=== PATIENT | male | born 1955 | race Caucasian/White ===

== ENCOUNTER 2019-05-24 06:15 | Emergency (ER) | payer OTHER ==
[~2019-05-24] VITALS: Ht 188 cm; Wt 142.9 kg
--- OUTSIDE RECORDS SUMMARY | ~2019-05-24 | XMS | Clinical Summary ---
Demographics + + + | Address | [address] | | | [place] [address] | + + + | Home Phone | | + + + | Preferred Language | Unknown | + + + | Marital Status | Unknown | + + + | Hinduism Affiliation | Unknown | + + + | Race | Unknown | + + + | Ethnic Group | Unknown | + + + Author + + + | Author | [facility] | | | and [place] | + + + | Organization | [facility] | | | and [place] | + + + | Address | Unknown | + + + | Phone | Unavailable | + + + Support + + +---------+ + | Name | Relationship | Address | Phone | + + +---------+ + | ViktoriyaLiz | ECON | Unknown | | + + +---------+ + Care Team Providers + +------+ + | Care Payroll Associate Name | Role | Phone | + +------+ + | Nickolas Bagley MD | PCP | | + +------+ + Allergies No Known Allergies Medications + + + +---------+------+------+-------+ | Medication | Sig | Dispensed | Refills | Star | End | Statu | | | | | | t | Date | s | | | | | | Date | | | + + + +---------+------+------+-------+ | acetaminophen | Take 325 mg by mouth | | 0 | 01/2 | | Activ | | (TYLENOL) 325 mg | every 6 (six) hours | | | 4/20 | | e | | tablet | as needed for Pain. | | | 19 | | | + + + +---------+------+------+-------+ | | Take 1 tablet by | | 0 | 01/2 | | Activ | | oxyCODONE-acetaminop | mouth every 4 (four) | | | 4/20 | | e | | hen (PERCOCET) | hours as needed for | | | 19 | | | | 10-325 mg per tablet | Pain. | | | | | | + + + +---------+------+------+-------+ | ibuprofen (ADVIL, | Take 400 mg by mouth | | 0 | 01/2 | | Activ | | MOTRIN) 400 mg | every 6 (six) hours | | | 4/20 | | e | | tablet | as needed for Pain. | | | 19 | | | + + + +---------+------+------+-------+ | gemfibrozil | Take 600 mg by mouth | | 0 | 01/2 | | Activ | | (LOPID) 600 mg | 2 (two) times daily | | | 4/20 | | e | | tablet | before meals. | | | 19 | | | + + + +---------+------+------+-------+ | metFORMIN | Take 1,000 mg by | | 0 | 01/2 | | Activ | | (GLUCOPHAGE) 1000 MG | mouth 2 (two) times | | | 4/20 | | e | | tablet | daily with meals. | | | 19 | | | + + + +---------+------+------+-------+ | glipiZIDE | Take 10 mg by mouth | | 0 | 01/2 | | Activ | | (GLUCOTROL) 10 MG | 2 (two) times daily | | | 4/20 | | e | | tablet | before meals. | | | 19 | | | + + + +---------+------+------+-------+ | aspirin 325 mg | Take 325 mg by mouth | | 0 | 01/2 | | Activ | | tablet | daily with | | | 4/20 | | e | | | breakfast. | | | 19 | | | + + + +---------+------+------+-------+ | SITagliptin | Take 100 mg by mouth | | 0 | 01/2 | | Activ | | (JANUVIA) 100 mg | daily. | | | 4/20 | | e | | tablet | | | | 19 | | | + + + +---------+------+------+-------+ | cyclobenzaprine | Take 10 mg by mouth | | 0 | 01/2 | | Activ | | (FLEXERIL) 10 mg | 3 (three) times | | | 4/20 | | e | | tablet | daily as needed for | | | 19 | | | | | Muscle spasms. | | | | | | + + + +---------+------+------+-------+ | clopidogrel | Take 1 tablet by | 90 | 3 | 01/2 | | Activ | | (PLAVIX) 75 mg | mouth daily. | tablet | | 4/20 | | e | | tablet | | | | 19 | | | + + + +---------+------+------+-------+ | | Take 1 tablet by | 90 | 3 | 01/2 | | Activ | | hydroCHLOROthiazide | mouth daily. | tablet | | 4/20 | | e | | 25 mg tablet | | | | 19 | | | + + + +---------+------+------+-------+ | irbesartan | Take 1 tablet by | 90 | 3 | 01/2 | | Activ | | (AVAPRO) 300 mg | mouth nightly. | tablet | | 4/20 | | e | | tablet | | | | 19 | | | + + + +---------+------+------+-------+ | metoprolol | Take 1 tablet by | 90 | 3 | 01/2 | | Activ | | succinate | mouth daily. | tablet | | 4/20 | | e | | (TOPROL-XL) 50 mg 24 | | | | 19 | | | | hr tablet | | | | | | | + + + +---------+------+------+-------+ | nitroglycerin | Place 1 tablet under | 90 | 0 | 01/2 | | Activ | | (NITROSTAT) 0.4 mg | the tongue every 5 | tablet | | 4/20 | | e | | SL tablet | (five) minutes as | | | 19 | | | | | needed for Chest | | | | | | | | pain. | | | | | | + + + +---------+------+------+-------+ | rosuvastatin | Take 1 tablet by | 90 | 3 | / | | Activ | | (CRESTOR) 10 mg | mouth nightly. | tablet | | 4/20 | | e | | tablet | | | | 19 | | | + + + +---------+------+------+-------+ | MANUAL SELECTION | Inhale into the | | 0 | /2 | | Activ | | NEEDED - STIOLTO | lungs. | | | 11/16 | | e | | RESPIMAT IN | | | | 19 | | | + + + +---------+------+------+-------+ Active Problems Not on file Social History + +-------+ +--------+------+ | Tobacco Use | Types | Packs/Day | Years | Date | | | | | Used | | + +-------+ +--------+------+ | Former Smoker | | | | | + +-------+ +--------+------+ + + + | Sex Assigned at | Date Recorded | | | | + + + | Not on file | | + + + + + + + | Job Start Date | Occupation | Industry | + + + + | Not on file | Not on file | Not on file | + + + + + + + + | Travel History | Travel Start | Travel End | + + + + + + | No recent travel history available. | + + Last Filed Vital Signs + + + + | Vital Sign | Reading | Time Taken | + + + + | Blood Pressure | 138/70 | 08/22/20186 PST | + + + + | Pulse | 79 | 08/22/20186 PST | + + + + | Temperature | - | - | + + + + | Respiratory Rate | - | - | + + + + | Oxygen Saturation | - | - | + + + + | Inhaled Oxygen | - | - | | Concentration | | | + + + + | Weight | 140.6 kg (310 lb) | 08/22/20181455 PST | + + + + | Height | 188 cm (6' 2") | 08/22/20181455 PST | + + + + | Body Mass Index | 39.8 | 08/22/20181455 PST | + + + + Plan of Treatment + + + + + | Health Maintenance | Due Date | Last Done | Comments | + + + + + | Vaccine: | | | | | Dtap/Tdap/Td (1 - | 5 | | | | Tdap) | | | | + + + + + | Colorectal Cancer | | | | | Screening | 6 | | | | (Colonoscopy) | | | | + + + + + | Vaccine: Zoster (1 | | | | | of 2) | 6 | | | + + + + + | Vaccine: Influenza | | | | | (#1) | 9 | | | + + + + + | Hepatitis C | Completed | 10/11/2010 | | | Screening | | | | + + + + + Results Not on filefrom Last 3 Months
--- OUTSIDE RECORDS SUMMARY | ~2019-05-24 | XMS | Clinical Summary ---
Demographics + + + | Address | [address] | | | [place] [address] | + + + | Home Phone | | + + + | Preferred Language | Unknown | + + + | Marital Status | Unknown | + + + | Spiritism Affiliation | Unknown | + + + | Race | Unknown | + + + | Ethnic Group | Unknown | + + + Author + + + | Author | [facility] | | | and [place] | + + + | Organization | [facility] | | | and [...] Team Providers + +------+ + | Care Payment Poster Name | Role | Phone | + [...]
--- OUTSIDE RECORDS SUMMARY | ~2019-05-24 | XMS | Clinical Summary ---
Demographics + + + | Address | [address] | | | [place] [address] | + + + | Home Phone | | + + + | Preferred Language | Unknown | + + + | Marital Status | Single | + + + | Bahai Affiliation | Unknown | + + + | Race | Unknown | + + + | Ethnic Group | Unknown | + + + Author + + + | Author | [facility] (Historical as of | | | 03-15-19) | + + + | Organization | [facility] (Historical as of | | | 03-15-19) | + + + | Address | Unknown | + + + | Phone | Unavailable | + + + Support + + +---------+ + | Name | Relationship | Address | Phone | + + +---------+ + | ViktoriyaFelixLiz | ECON | Unknown | | + + +---------+ + Care Team Providers + +------+ + | Care Tape Stringer Name | Role | Phone | + +------+ + | Nickolas Bagley MD | PP | | + +------+ + Allergies No Known Allergies Current Medications + + +--------+---------+------+------+-------+ | Prescription | Sig. | Disp. | Refills | Star | End | Statu | | | | | | t | Date | s | | | | | | Date | | | + + +--------+---------+------+------+-------+ | acetaminophen | Take 325 mg by mouth | | | | | Activ | | (TYLENOL) 325 MG | every 6 (six) hours | | | | | e | | tablet | as needed for Pain. | | | | | | + + +--------+---------+------+------+-------+ | | Take 1 tablet by | | | | | Activ | | oxyCODONE-acetaminop | mouth every 4 (four) | | | | | e | | hen (PERCOCET) | hours as needed for | | | | | | | 10-325 MG per tablet | Pain. | | | | | | + + +--------+---------+------+------+-------+ | ibuprofen (MOTRIN) | Take 400 mg by mouth | | | | | Activ | | 400 MG tablet | every 6 (six) hours | | | | | e | | | as needed for Pain. | | | | | | + + +--------+---------+------+------+-------+ | gemfibrozil | Take 600 mg by mouth | | | | | Activ | | (LOPID) 600 MG | 2 (two) times daily | | | | | e | | tablet | before meals. | | | | | | + + +--------+---------+------+------+-------+ | metFORMIN | Take 1,000 mg by | | | | | Activ | | (GLUCOPHAGE) 1000 MG | mouth 2 (two) times | | | | | e | | tablet | daily with meals. | | | | | | + + +--------+---------+------+------+-------+ | glipiZIDE | Take 10 mg by mouth | | | | | Activ | | (GLUCOTROL) 10 MG | 2 (two) times daily | | | | | e | | tablet | before meals. | | | | | | + + +--------+---------+------+------+-------+ | aspirin 325 MG | Take 325 mg by mouth | | | | | Activ | | tablet | daily with | | | | | e | | | breakfast. | | | | | | + + +--------+---------+------+------+-------+ | sitagliptan | Take 100 mg by mouth | | | | | Activ | | (JANUVIA) 100 MG | daily. | | | | | e | | tablet | | | | | | | + + +--------+---------+------+------+-------+ | cyclobenzaprine | Take 10 mg by mouth | | | | | Activ | | (FLEXERIL) 10 MG | 3 (three) times | | | | | e | | tablet | daily as needed for | | | | | | | | Muscle spasms. | | | | | | + + +--------+---------+------+------+-------+ | Tiotropium | Inhale into the | | | | | Activ | | [place]-Olodaterol | lungs. | | | | | e | | (STIOLTO RESPIMAT | | | | | | | | IN) | | | | | | | + + +--------+---------+------+------+-------+ | clopidogrel | Take 1 tablet by | 90 | 3 | 07/31 | | Activ | | (PLAVIX) 75 MG | mouth daily. | tablet | | 11/16 | | e | | tablet | | | | 19 | | | + + +--------+---------+------+------+-------+ | | Take 1 tablet by | 90 | 3 | 01/2 | | Activ | | hydrochlorothiazide | mouth daily. | tablet | | 4/20 | | e | | (HYDRODIURIL) 25 MG | | | | 19 | | | | tablet | | | | | | | + + +--------+---------+------+------+-------+ | irbesartan | Take 1 tablet by | 90 | 3 | 01/2 | | Activ | | (AVAPRO) 300 MG | mouth nightly. | tablet | | 4/20 | | e | | tablet | | | | 19 | | | + + +--------+---------+------+------+-------+ | metoprolol | Take 1 tablet by | 90 | 3 | 01/2 | | Activ | | (TOPROL-XL) 50 MG 24 | mouth daily. | tablet | | 4/20 | | e | | hr tablet | | | | 19 | | | + + +--------+---------+------+------+-------+ | nitroGLYCERIN | Place 1 tablet under | 90 | 0 | 01/2 | | Activ | | (NITROSTAT) 0.4 MG | the tongue every 5 | tablet | | 4/20 | | e | | SL tablet | (five) minutes as | | | 19 | | | | | needed for Chest | | | | | | | | pain. | | | | | | + + +--------+---------+------+------+-------+ | rosuvastatin | Take 1 tablet by | 90 | 3 | 01/2 | | Activ | | (CRESTOR) 10 MG | mouth nightly. | tablet | | 4/20 | | e | | tablet | | | | 19 | | | + + +--------+---------+------+------+-------+ Active Problems Not on file Social History + +-------+ +--------+------+ | Tobacco Use | Types | Packs/Day | Years | Date | | | | | Used | | + +-------+ +--------+------+ | Former Smoker | | | | | + +-------+ +--------+------+ + +---+---+---+ | Smokeless Tobacco: | | | | | Never Used | | | | + +---+---+---+ + + +---------+ + | Alcohol Use | Drinks/We | oz/Week | Comments | | | ek | | | + + +---------+ + | No | | | | + + +---------+ + + + + | Sex Assigned at | Date Recorded | | | | + + + | Not on file | | + + + Last Filed Vital Signs + + + + | Vital Sign | Reading | Time Taken | + + + + | Blood Pressure | 138/70 | 08/22/2018 2:43 PM PST | + + + + | Pulse | 79 | 08/22/2018 2:43 PM PST | + + + + | Temperature | - | - | + + + + | Respiratory Rate | - | - | + + + + | Oxygen Saturation | 96% | 08/22/2018 2:43 PM PST | + + + + | Inhaled Oxygen | - | - | | Concentration | | | + + + + | Weight | 140.6 kg (310 lb) | 08/22/2018 2:43 PM PST | + + + + | Height | 188 cm (6' 2") | 08/22/2018 2:43 PM PST | + + + + | Body Mass Index | 39.8 | 08/22/2018 2:43 PM PST | + + + + Plan of Treatment + + + + + | Health Maintenance | Due Date | Last Done | Comments | + + + + + | Colon Cancer | | | | | Screening [...] + + + | Vaccine: | | 08/19/2018 | | | Dtap/Tdap/Td (2 - | 9 | | | | Td) | | | | + + + + + Results Not on filefrom Last 3 Months Insurance + +--------+ +------+-------+---------+ | Payer | Benefi | Subscriber | Type | Phone | Address | | | t Plan | ID | | | | | | / | | | | | | | Group | | | | | + +--------+ +------+-------+---------+ | [facility] | [place] | [id number] | | | | | | | | | | | | | HEALTH | | | | | | | CARE - | | | | | | | SLC | | | | | + +--------+ +------+-------+---------+ + +--------+ +--------+ + + | Guarantor Name | Accoun | Relation to | Date | Phone | Billing Address | | | t Type | Patient | of | | | | | | | | | | + +--------+ +--------+ + + | ROBER SCHNEIDER | Person | Self [birth year] Home: | [address] | | | al/Fam | | [phone] | [place] | | | pratik | | | [phone] | [phone] | + +--------+ +--------+ + +
--- OUTSIDE RECORDS SUMMARY | ~2019-05-24 | XMS | Clinical Summary ---
Demographics + + + | Address | [address] | | | [place] [address] | + + + | Home Phone | | + + + | Preferred Language | Unknown | + + + | Marital Status | Single | + + + | Scientology Affiliation | Unknown | + + + | Race | Unknown | + + + | Ethnic Group | Unknown | + + + Author + + + | Author | [facility] (Historical as of | | | 03-15-19) | + + + | Organization | [facility] (Historical as of | | | 03-15-19) [...] Team Providers + +------+ + | Care Nitro Man Name | Role | Phone | + [...] | | | | Activ | | [place]-Olodaterol | lungs. | | | | | [...] | | | + +--------+ +------+-------+---------+ | [facility] | [place] | [id number] | | | | | | | [...] | | al/Fam | | [phone] | [place] | | | pratik | | | [phone] | + +--------+ +--------+ + +
[~2019-05-24 06:15] MED LIST: CLOPIDOGREL75 MG PO; GEMFIBROZIL600 MG PO; GLIPIZIDE10 MG PO; HYDROCHLOROTHIA25 MG PO; IRBESARTAN300 MG PO; JANUVIA100 MG PO; MELOXICAM15 MG PO; METFORMIN HCL1000 MG PO; METOPROLOL SUCC50 MG PO; NITROGLYCERIN0.4 MG SL; ROSUVASTATIN CA10 MG PO; VITAMIN D250000 UNIT PO
[2019-05-24] MEDS ORDERED: ANORO ELLIPTA1 EACH INH (06:26)
--- NOTE | 2019-05-24 19:59 | EKG ---
[facility] [address] [place], [place] [address] Signed Normal sinus rhythm Normal ECG When compared with ECG of 17-DEC-2016 11:55, No significant change was found Confirmed by FER MIMS MD ([id number]) on 05/24/2019 7:58:57 PM Electronically Signed By: FER MIMS MD 05/24/191958 PATIENT NAME: ELLE SCHNEIDER Electrocardiogram DATE OF : 57 PHYSICIAN: FER MIMS MD REPORT #: [id number] REPORT IS CONFIDENTIAL AND NOT TO BE RELEASED WITHOUT AUTHORIZATION
== END 2019-05-24 08:35 | disposition home or self-care (01) ==
LOC: ED 06:15
PROC: 0T2BX0Z Change Drainage Device in Bladder, External Approach (ICD-10-PCS; principal; 2019-05-24)
PROC: 4A0D7LZ Measurement of Urinary Volume, Via Natural or Artificial Opening (ICD-10-PCS; 2019-05-24)
DX: R06.02 Shortness of breath (principal); R33.9 Retention of urine, unspecified; I10 Essential (primary) hypertension; E78.5 Hyperlipidemia, unspecified; Z87.891 Personal history of nicotine dependence; Z95.5 Presence of coronary angioplasty implant and graft; Z79.02 Long term (current) use of antithrombotics/antiplatelets; Z79.899 Other long term (current) drug therapy; Z79.84 Long term (current) use of oral hypoglycemic drugs
CPT/HCPCS: 51702; 51798; 71045; 80053; 83735; 83880; 84484; 85025; 93005; 93010; 99285-25

== ENCOUNTER 2020-02-02 05:50 | Day surgery (SDC) | payer OTHER ==
[~2020-02-02] VITALS: Ht 188 cm; Wt 130.2 kg
--- NOTE | ~2020-02-02 | OR ---
[facility] [address], [place] [address] Draft DATE OF OPERATION: 02/02/2020 SURGEON: Laisha Scott MD PREOPERATIVE DIAGNOSES: 1. Urinary retention, secondary to long-standing bladder outlet obstruction. 2. Severe benign prostatic hypertrophy. POSTOPERATIVE DIAGNOSES: 1. Urinary retention, secondary to long-standing bladder outlet obstruction. 2. Severe benign prostatic hypertrophy. PROCEDURE PERFORMED: Transurethral resection of the prostate. ANESTHESIA: LMA with epidural. COMPLICATIONS: None. SPECIMENS: Prostate chips sent to the lab for pathological evaluation. DRAINS: A 22-[place] 3-way Bergman catheter, connected to continuous bladder irrigation. INDICATIONS FOR PROCEDURE: Mr. Sadler is a 64-year-old gentleman, who is well known to me. In April of 2019, he experienced a bout of severe urinary retention and underwent a workup including diagnostic cystoscopy, which revealed severe lateral lobe hypertrophy, along with evidence of bladder wall trabeculation, suggesting long-standing bladder outlet obstruction. He was offered TURP at that time. However, given his cardiac history, he was forced to delay surgery. When the time came around to undergo surgery in the early spring, his surgery was delayed due to safety restrictions related to coronavirus. He is now ready to undergo the procedure today. His catheter was changed approximately 2 weeks ago and he has been off his Plavix for over 7 days now. OPERATIVE FINDINGS: 1. 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 2. A digital examination was performed, which revealed an approximately 35 g prostate that is so symmetric and with no focal palpable nodules. 3. The prostate gland was resected using a bipolar electrocautery with good success. Both lateral lobes were resected extensively, while the small median lobe was resected just a small amount. All the chips were placed in a specimen cup to be sent to pathology for evaluation. 4. At the end of the procedure, I performed another cystoscopy, which revealed no evidence of any iatrogenic damage to the bilateral ureteral orifices. A 22-[place] 3-way Bergman catheter was inserted into the patient's bladder over a Sensor wire without difficulty. The catheter was then connected to continuous bladder irrigation. DESCRIPTION OF PROCEDURE: After informed consent was obtained, the patient was taken back to the operating room. He was transferred from the [facility] to the operating room table, where spinal anesthesia was induced. He was then placed in the dorsal lithotomy position and his genitalia were prepped and draped in a standard sterile fashion. The patient's urethra was dilated from 18-[place]an to 28-[place]an without difficulty. A resectoscope was then inserted through the urethra into the bladder using a visual obturator. I then began resection with a 14-[place] loop and bipolar electrocautery, beginning on the right lobe. The right lateral lobe was resected extensively without difficulty. I then moved my attention to the left lobe of the prostate and again resected the left lobe to the level of the capsule. I performed a thorough cystoscopy at this time to evaluate the location of the bilateral ureteral orifices, which were good distance away from the bladder neck. There was no median lobe noted at the level of the bladder neck, so the bladder neck was just very slightly resected, as to avoid undermining the bladder neck. Once the resection was complete, I switched from the bipolar loop to the bipolar button to achieve and maintain hemostasis in both of the resected lobes of the prostate. Once I had achieved adequate hemostasis, a Cassie syringe was used to irrigate each prostate chips from the patient's bladder. The patient's bladder was irrigated multiple times and a cystoscopy was repeated to be sure that all prostate chips had been successfully evacuated from the bladder. After removal of the final fragments of prostate chips, I was able to appreciate very minimal blood in the irrigation fluid. This suggested good hemostasis. A Sensor wire was inserted into the patient's bladder through the sheath of the resectoscope. The sheath was then removed fully intact. Over the wire, a 22-[place] 3-way Bergman catheter was inserted into the patient's bladder without difficulty. The catheter was placed easily and then 30 mL of sterile water was then infused into the catheter balloon. The Bergman catheter was then manually irrigated without difficulty. The catheter was then connected to continuous bladder irrigation and the procedure was terminated. The patient tolerated the procedure well without any complication. He will now be transferred to the postanesthesia care unit in stable condition. PATIENT NAME: ELLE SADLER OPERATIVE REPORT DATE OF : 57 REPORT #: [id number] PHYSICIAN: LAISHA SCOTT MD PCP: AMBIKA DONNELLY MD REPORT IS CONFIDENTIAL AND NOT TO BE RELEASED WITHOUT AUTHORIZATION [address] [address] Draft DISPOSITION: The patient will be transferred to the hospital floor for one evening, so that his continuous bladder irrigation can be slowly weaned to off. In the morning, he will receive another IV antibiotic prior to discharge. He will be discharged to home with a Bergman catheter gravity drainage. He is currently scheduled to return to clinic this to undergo his first voiding trial. He will be sent home with Percocet 5/325, dispensed #30 as needed for pain, along with Levaquin 500 mg p.o. daily for a total of 10 days. MD BECKI Barajas/OFELIA /[id number] Copies: ~ PATIENT NAME: ELLE SADLER OPERATIVE REPORT DATE OF : 57 REPORT #: [id number] PHYSICIAN: LAISHA SCOTT MD PCP: AMBIKA DONNELLY MD REPORT IS CONFIDENTIAL AND NOT TO BE RELEASED WITHOUT AUTHORIZATION
[~2020-02-02 05:50] MED LIST changes: +ANORO ELLIPTA1 EACH INH
[2020-02-02] MEDS ORDERED: VENTOLIN HFA18 GM INH ×2 (06:48→17:26)
--- NOTE | 2020-02-02 09:56 | NUR ---
Visited PT before his procedure letting him know that we care about our PTs and I would be praying for him. I thanked him for choosing [facility]. This procedure is the 1st step for him and he is grateful to finally get it done. It was postponed due to Covid. He is looking forward to the relief and hoping that it will be successful.
--- NOTE | 2020-02-02 10:45 | NUR ---
PT TO FLOOR VIA STRETCHER WITH DIANDRA LAGOS. PT AWAKE AND TALKATIVE. CANT FEEL LEGS YET OR WIGGLE TOES. VS STABLE.
--- NOTE | 2020-02-02 11:20 | NUR ---
[facility] ARRIVED IN PACU SLEEPY WITH NO C/O'S. BP LOW ON ARRIVAL. ANESTHESIA AT BEDSIDE INCREASING IV FLUID. 1000 BLOOD SUGAR 171. ANESTHESIA AWARE. 1015 PT AWAKE TALKING TO STAFF. VERNON CATH WITH CBI RUNNING. URINE CLEAR IN VERNON. 1030 EMPTIED 1200 OF IRRIGATION AND URINE FROM VERNON. TO ROOM 116. BED PLUGGED IN AND CALL LITE GIVEN.
--- NOTE | 2020-02-02 11:21 | NUR ---
SECOND VS LOWER BUT ASYMPTOMATIC 88 SYS.
--- NOTE | 2020-02-02 14:06 | NUR ---
PT REPORTS A HEADACHE AND HIPS ACHE.
--- NOTE | 2020-02-02 16:01 | NUR ---
PT STOOD AT SIDE OF BED WITH ASSISTANCE. NEEDED TO STRETCH OUT HIS HIPS HE STATES THEY BOTH NEED REPLACED.
[2020-02-02] MEDS ORDERED: TRULICITY1.5 MG/0.5 SUB-Q (17:17)
[2020-02-02] MEDS ORDERED: BEVESPI AEROS10.7 GM INH (17:19)
[2020-02-02] MEDS ORDERED: [UNRECOGNIZED DRUG - OTHER] PO (17:56)
[2020-02-02] MEDS ORDERED: GLUCOSAMINE-CH1 EA19 PO (17:57)
--- NOTE | 2020-02-02 17:58 | NUR ---
MED REC COMPLETE
--- NOTE | 2020-02-02 18:43 | NUR ---
PATIENT SITTING UP IN BED WATCHING TV. COMPLAINS OF PAIN 8 OUT OF 10, RN NOTIFIED. CALL LIGHT IN REACH. NO FURTHER NEEDS AT THIS TIME.
--- NOTE | 2020-02-02 19:20 | NUR ---
BEDSIDE REPORT RECEIVED FROM YOLIS PURI. IVF INFUSING WNL ORDERED. CBI INFUSING VERNON CATHETER, PINK/RED DRAINAGE. MD IN pt ROOM. INSTRUCTIONS TO CLAMP CATHETER PORT IN MORNING FOR DISCHARGE. CALL LIGHT IN REACH.
--- NOTE | 2020-02-02 20:20 | NUR ---
NEW BAG CBI IRRIGATION INFUSING, DRAINAGE LIGHT PINK. IV FLUSHED WNL. pt RATES PAIN 6/10, DENIES ANY INTERVENTIONS, CHRONIC PAIN. EDUCATION PROVIDED TO REST MUCH POSSIBLE. SCDS ON. SPO2 WNL ON RA. VSS. CALL LIGHT IN REACH. ICE WATER PROVIDED.
--- NOTE | 2020-02-02 23:01 | NUR ---
CALL LIGHT ANSWERED. PRN PAIN MEDICATION ADMINISTERED FOR 8/10 PAIN IN BACK, HIPS. pt STATES "I'M ABOUT TO CRY". C/O HOSPITAL BED. OFFERED TO ASSIST WITH REPOSITIONING pt DECLINES. URINE LIGHT PINK IN COLOR, VERNON EMPTIED. CALL LIGHT IN REACH.
--- NOTE | 2020-02-03 02:34 | NUR ---
CALL LIGHT ANSWERED, pt C/O BACK PAIN "FEELS LIKE I'M ON A HARD BOARD". REFUSES TO BE FLOATED ON PILLOWS FOR COMFORT, HOT, COLD PACKS. PRN PAIN MEDICATION ADMINISTERED. IVF INFUSING WNL ORDERED. VERNON EMPTIED, LIGHT PINK/YELLOW DRAINAGE. CBI TITRATED TO SLOW DRIP. ASSESSMENT COMPLETE. CALL LIGHT IN REACH. SCDS ON.
--- NOTE | 2020-02-03 04:11 | NUR ---
PT CALLED, IV ALARMING. ASSESSED, NOW INFUSING. STATES HE WAS SLEEPING AND ALARM WOKE HIM UP.
--- NOTE | 2020-02-03 07:22 | NUR ---
BEDSIDE REPORT FROM EULA LAGOS...PT SITTING UP IN BED HE REPORTS HE HAS HAD SIGNIFICANT PAIN RELATED TO HIS CHRONIC BACK AND HIP PAIN, HE SAYS IT IS WORSE DUE TO OUR HOSPITAL BED. PAIN RELATED TO PROCEDURE IS WELL MANAGED. CBI HAS BEEN CLAMPED SINCE 629, URINE IN TUBE AND VERNON BAG IS CLEAR YELLOW.
[2020-02-03] MEDS ORDERED: PERCOCET 5-3251 EACH PO (09:18)
[2020-02-03] MEDS ORDERED: LEVAQUIN500 MG PO (09:22)
--- NOTE | 2020-02-03 09:47 | NUR ---
PATIENT IN BED RESTING. FREASH WATER GIVEN. CALL LIGHT IN REACH. NO FURTHER NEEDS AT THIS TIME.
--- NOTE | 2020-02-03 10:54 | NUR ---
PT REQUESTS A LEG BAG WELL A LARGE VERNON BAG. BOTH PROVIDED. LEG BAG PLACED PER HIS REQUEST. PT GIVEN 1 TAB OF PERCOCET PO PRN FOR BACK AND HIP PAIN. VERNON TUBE LIGHT PINK TO YELLOW URINE, NO CLOTS OBSERVED. PT HAS CALLED FOR HIS RIDE TO COME. ASSESSMENT AND V/S STABLE
--- NOTE | 2020-02-03 11:08 | NUR ---
Spoke with Rober. He states he lives in [facility], but in staying in [place] with his exwife. They live in a 1 story home without steps. He uses a cane. He is awaiting further surgeries in [place], which were cancelled due to covid. He uses a cane. Denies concern for dc as his exwife, Lzi will assist him.
--- NOTE | 2020-02-04 13:14 | PATH ---
[facility] [address] [place], [place] [address] Signed SPECIMEN(S): A PROSTATE CHIPS (TUR) SPECIMEN SOURCE: A. PROSTATE CHIPS (TUR) CLINICAL HISTORY: Urinary retention, BPH. FINAL PATHOLOGIC DIAGNOSIS: Prostate, transurethral resection: - Benign glandular and stromal hyperplasia. - Negative for malignancy and atypia. - Focal mild chronic prostatitis. JACOBY:mary:C2NR MICROSCOPIC EXAMINATION: Histologic sections of all submitted blocks are examined by light microscopy. These findings, together with the gross examination, support the pathologic diagnosis. GROSS DESCRIPTION: The specimen, labeled "CC," and designated on the requisition "TURP prostate chips," is received in formalin and consists of 12 g, peace, rubbery, chip-like soft tissue, and 7.2 x 5.9 x 2.1 cm in aggregate. The specimen is submitted in toto in seven cassettes (A1-A7). AI (under the direct supervision of a pathologist) The Gross Description was prepared using a voice recognition system. The report was reviewed for accuracy; however, sound-alike word errors, addition and/or deletions may occur. If there is any question about this report, please contact Client Services. PERFORMING LABORATORY: The technical component was performed by [facility], [address] [place] [id number] (Welder And Fitter: Rand See MD; CLIA# [id number]). [facility] [place] [facility], [address] [address] (CLIA# [id number]). Diagnostician: Aron Rahman MD Pathologist Electronically Signed 02/04/2020 PATIENT NAME: ELLE SCHNEIDER PATHOLOGY DATE OF : 57 REPORT #: [id number] PHYSICIAN: MAE PATHOLOGY PCP: AMBIKA DONNELLY MD REPORT IS CONFIDENTIAL AND NOT TO BE RELEASED WITHOUT AUTHORIZATION [facility] [address] [place] [id number] Signed Copies: ~ PATIENT NAME: ELLE SCHNEIDER PATHOLOGY DATE OF : 57 REPORT #: [id number] PHYSICIAN: [facility] PATHOLOG[facility] PCP: AMBIKA DONNELLY MD REPORT IS CONFIDENTIAL AND NOT TO BE RELEASED WITHOUT AUTHORIZATION
== END 2020-02-03 11:15 | disposition home or self-care (01) ==
LOC: DS 05:50 → MS 10:30 → DS 02-03 11:15
PROVIDERS: Urology
PROC: 0V507ZZ Destruction of Prostate, Via Natural or Artificial Opening (ICD-10-PCS; principal; 2020-02-02 06:45)
DX: N40.1 Benign prostatic hyperplasia with lower urinary tract symptoms (principal); R33.8 Other retention of urine; N13.8 Other obstructive and reflux uropathy; E11.9 Type 2 diabetes mellitus without complications; I10 Essential (primary) hypertension; I25.10 Atherosclerotic heart disease of native coronary artery without angina pectoris; Z79.02 Long term (current) use of antithrombotics/antiplatelets; Z79.84 Long term (current) use of oral hypoglycemic drugs; Z79.899 Other long term (current) drug therapy
CPT/HCPCS: 00912; 51702; 94762; C1769; J0696; J1580; J1815; J2001; J2270; J2405; J2704; J7030; J7121

== ENCOUNTER 2020-06-21 05:50 | Day surgery (SDC) | payer OTHER ==
[~2020-06-21] VITALS: Ht 188 cm; Wt 130.0 kg
[~2020-06-21 05:50] MED LIST changes: +BEVESPI AEROS10.7 GM INH; +GLUCOSAMINE-CH1 EA19 PO; +JARDIANCE10 MG PO; +LEVAQUIN500 MG PO; +PERCOCET 5-3251 EACH PO; +TRULICITY1.5 MG/0.5 SUB-Q; +VENTOLIN HFA18 GM INH; +[UNRECOGNIZED DRUG - OTHER] PO
--- NOTE | 2020-06-21 06:55 | NUR ---
PROVIDED ASSISTANCE WITH RIGHT HIP BLOCK WITH RAISSA LOTT.
--- NOTE | 2020-06-21 09:40 | NUR ---
CALL TO DR. DORSEY OFFICE TO CHECK ON ORDER FOR WALKER FROM [facility]. SPOKE WITH AKIN WHO IS GOING TO FAX ORDER TO [facility]. WILL CALL PATIENT'S EX TO SEE IF SHE WILL HEALTH/SAFETY JOB TITLES FOR PATIENT.
--- NOTE | 2020-06-21 10:08 | NUR ---
06/21/20 1008 Reyna Ramsey 0912 PT ARRIVED IN PACU REACTIVE WITH OPA IN PLACE. ANESTHESIA REMOVED OPA. 0920 BLOOD SUGAR 186. PELVIS XRAY DONE. NO C/O'S. 0930 CRYO CUFF PLACED ON R HIP. 0945 C/O R HIP PAIN 12/06. DECLINED PAIN MED WHEN OFFERED. 1000 TO DS. REPORT GIVEN TO RN.
--- NOTE | 2020-06-21 10:15 | NUR ---
PATIENT RESTING BACK IN BED, AWAKE ON AND OFF. PATIENT RATES PAIN 5/10 ON PAIN SCALE AND REPORTS DULL ACHE. PATIENT SPINAL AT L2, PATIENT UNABLE TO WIGGLE TOES AT THIS TIME OR FEEL SENSATION. STRONG PEDAL PULSE. DRESSING TO RIGHT HIP C/D/I. CRYO IN PLACE. CALL LIGHT WITHIN REACH. PROVIDED ICE WATER AND SNACKS. NO OTHER NEEDS AT THIS TIME. PATIENT STATES " I JUST WANNA SLEEP FOR A BIT".
--- NOTE | 2020-06-21 11:00 | NUR ---
PATIENT AWAKE IN BED, ORDERED PATIENT LUNCH. PATIENT RATES PAIN 7/10 ON PAIN SCALE. ADMINISTERED PAIN MEDICATION. VSS. DRESSING TO RIGHT HIP C/D/I, CRYO IN PLACE.
--- NOTE | 2020-06-21 11:25 | OR ---
[facility] [address] [place], [place] [address] Signed DATE OF OPERATION: 06/21/2020 SURGEON: Sinan Rahman MD POSTOPERATIVE DIAGNOSIS: Severe hip degenerative joint disease, bilateral. POSTOPERATIVE DIAGNOSIS: Severe hip degenerative joint disease, bilateral. PROCEDURE PERFORMED: Right total hip arthroplasty. COURT REGISTRY OFFICER: ANESTHESIA: Spinal. BLOOD LOSS: 300 mL. IMPLANTS: Cabot Accolade II, size 5 stem, 58 mm cup and a plus 5 head. BRIEF HISTORY: Rober is a 65-year-old gentleman with pain in both hips and severe degenerative changes. Risks and benefits of operative treatment were discussed with him. He elected to proceed. DESCRIPTION OF PROCEDURE: Once consent was obtained, he was taken to the operating room. After adequate anesthesia, he was placed in the left lateral decubitus position. All downside pressure points were well padded. Axillary roll was placed. The hip was then prepped and draped in a standard sterile fashion to include the iliac crest. The ASIS was located and three fingerbreadths behind the three pins for the Marco pelvic array were placed percutaneously. The attention was then turned to the hip. Standard modified Hardinge approach was taken through skin and subcutaneous tissue. The IT band was divided longitudinally. The vastus lateralis was split from the greater trochanter distally and elevated subperiosteally. The gluteus medius was then split off the anterior trochanter Electronically Signed By: SINAN RAHMAN MD 06/21/20 1125 PATIENT NAME: ROBER SCHNEIDER OPERATIVE REPORT DATE OF : 57 REPORT #: [id number] PHYSICIAN: SINAN RAHMAN MD PCP: AMBIKA DONNELLY MD REPORT IS CONFIDENTIAL AND NOT TO BE RELEASED WITHOUT AUTHORIZATION [facility] [address] [place], [place] [address] Signed and elevated around to the femoral neck. This was then taken around the femoral neck to that level of the lesser trochanter in subperiosteal manner. All bleeders were cauterized as we went. The checkpoint for the Marco was then placed in the greater trochanter and the leg length and offset were marked with the computer. The hip was then dislocated and the femoral neck cut made one fingerbreadth above the lesser trochanter, the femoral head was passed off. Periacetabular soft tissue was removed. The osteophytes were left in place. The acetabulum was then registered using the long probe and the osteophytes were then removed. The robot was brought in and the acetabulum was reamed to 40 degrees of abduction, 20 degrees of anteversion per the preop plan. This was done one single ream. The cup was then impacted until it was well seated and flushed. The bone was relatively soft, so I did put two screws in the posterior superior quadrant. The polyethylene was impacted into position and the inferior osteophytes and anterior superior osteophytes were removed. Once this was accomplished, attention was turned to proximal femur, this was opened up using the keith cutter followed by the Elvia awl. The lateralizing reamer was used to ream into the trochanter. It was then sequentially broached up to a 5, which matched preoperative templating. The high offset neck and posterior head were then placed. The hip was reduced quite easily and he was short and a little bit laxed . We then switched him to the plus 5 and this showed good leg lengths. This was checked using the computer and found to be within 1 mm plan. We then dislocated the hip, removed the trials and placed the final femoral stem and impacted until it was well seated and stable. The plus 5 head was impacted and the hip was reduced. This showed no leg length difference and the range of motion was good. Stability was excellent. The wound was copiously irrigated with normal saline and dilute iodine. The periarticular soft tissues were injected with 100 mL of ropivacaine and Toradol mixture. The capsule was then closed using #1 Vicryl, the vastus and IT band layers were closed independently using #2 Stratafix, 0 Stratafix for subcutaneous tissue and luke for the skin. The wound was dressed with a LAWANDA wound VAC dressing and an Acticoat underneath it. The patient was awakened, taken to the recovery room in satisfactory condition. All sponge, needle, and instrument counts were correct. Sinan Rahman MD BA/TIFFANIEL /[id number] Electronically Signed By: SINAN RAHMAN MD 06/21/20 1125 PATIENT NAME: ROBER SCHNEIDER OPERATIVE REPORT DATE OF : 57 REPORT #: [id number] PHYSICIAN: SINAN RAHMAN MD PCP: AMBIKA DONNELLY MD REPORT IS CONFIDENTIAL AND NOT TO BE RELEASED WITHOUT AUTHORIZATION [address] [address] Signed Copies: ~ Electronically Signed By: SINAN RAHMAN MD 06/21/20 1125 PATIENT NAME: ROBER SCHNEIDER OPERATIVE REPORT DATE OF : 57 REPORT #: [id number] PHYSICIAN: SINAN RAHMAN MD PCP: AMBIKA DONNELLY MD REPORT IS CONFIDENTIAL AND NOT TO BE RELEASED WITHOUT AUTHORIZATION
--- NOTE | 2020-06-21 12:00 | NUR ---
PATIENT CAN FEEL UPPER LEGS, ABDOMEN FEELS FIRM. BLADDER SCAN >500 ML. PATIENT ATTEMPTED TO VOID ON OWN WITH URINAL. DRESSING C/D/I. STRONG PEDAL PULSE. CRYO IN PLACE. PATIENT SITTNG UP EATING LUNCH.
--- NOTE | 2020-06-21 13:04 | NUR ---
STRAIGHT CATH PATIENT, CATH INSERTED WITH EASE, PATIENT TOLERATED WELL. 700 ML OF ORANGE COLORED URINE. PATIENT REPORTS HAS FEELING TO BOTTOM OF FEET, BUT NOT THE TOPS AND CAN LIFT LEG. PATIENT REPORTS BACK PAIN IS MORE PAINFUL THEN SURGICAL SITE. VSS. NO OTHER NEEDS AT THIS TIME. CALL LIGHT WITHIN REACH.
--- NOTE | 2020-06-21 13:48 | NUR ---
ADMINISTERED PAIN MEDICATION PER MAR. PATIENT REPORTS SHARP PAIN WHEN HE TRIES TO MOVE SURGICAL LEG. VSS. PATIENT AWAKE AND ALERT, SMILING AND CONVERSING.
[2020-06-21] MEDS ORDERED: GABAPENTIN300 MG PO (14:41)
[2020-06-21] MEDS ORDERED: OXYCODONE HCL5 MG PO (14:41)
[2020-06-21] MEDS ORDERED: TAMSULOSIN HCL0.4 MG PO (14:41)
[2020-06-21] MEDS ORDERED: STOOL SOFTENER1 EAC4 PO (14:42)
--- NOTE | 2020-06-21 16:08 | NUR ---
RAISSA LOTT IS CALLED AND ASKED TO COME IN TO REBLOCK THE PATIENT.
--- NOTE | 2020-06-21 16:17 | NUR ---
PATIENT UP TO AMBULATE WITH PHYSICAL THERAPY, ABLE TO AMBULATE TO DAYSURGERY ENTRANCE DOORS, APPEARS TO GRIMACE AND COMPLAIN OF SHARP PAIN IN THE RIGHT HIP AND PELVIC FLOOR. PATIENT ALSO STATES " MY BACK IS KILLING ME". WHEN PATIENT WHEN TO SIT IN CHAIR PLOPPED DOWN, AND GROANED OUT LOUD IN PAIN. PATIENT THEN TO FLOOR IN WHEELCHAIR TO DO STAIRS, PATIENT APPEARED TO BRACE RAILS AND APPEARED UNSTEADY. PATIENT REFUSED TO WALK ANY FARTHER. PATIENT REPORTED DOES NOT HAVE ANY CHAIR RISER FOR TOILET AT HOME, AND WHEN LEAVING HOSPTIAL WOULD HAVE TO GET INTO LOW SITTING CAR. PHYSICAL THERAPY, ISIDRO VERBALIZED CONCERN FOR PATIENT TO TRANSFER TO CAR, AND SAFETY RISKS. PATIENT ALSO NEEDS OT EVALUATION, AND CANNOT BE DOEN UNTIL TOMORROW. CALL TO DR. DORSEY TO REPORT FINDINGS AND CONCERNS. DR. DORSEY VERBALIZED FACULTY MEMBER NEEDS TO PROVIDE A RESCUE BLOCK FOR PATIENT TO CONTROL HIP, AND THAT PATIENT SHOULD BE ADMITTED TO MEDICAL SURGCAL FLOOR. CALL TO MEDICAL FLOOR SPOKE WITH ARETHA LAGOS. PLAN TO TRANSFER NERISSA TO ROOM 107 AT 1700, AND RAISSA HERE NOW FOR RESCUE BLOCK. PATIENT CONTINUES TO BE UNABLE TO URINATE.
--- NOTE | 2020-06-21 17:20 | NUR ---
PT ARRIVED TO THE FLOOR VIA WHEELCHAIR. PT IS ALERT, ORIENTED AND CAN MAKE TRANSFER FROM WHEELCHAIR TO BED WITH SBA. PT RATES PAIN 5/10. VSS. LAWANDA INTACT AND FLASHING GREEN. LAWANDA DRESSING CDI, BRIDGETT HOSE ON, CRYO UNIT IN PLACE. SCDS ON FEET. DINNER ORDERED. CALL LIGHT WITHIN REACH
--- NOTE | 2020-06-21 17:25 | NUR ---
PATIENT TRANSFERED TO MED SURG ROOM 107. PATIENT ABLE TO VOID 375 ML OF ORANGE COLORED URINE, PVR 50 ML. PROVIDED BEDSIDE REPORT TO LUZ MARINA LAGOS, DRESSING C/D/I, LAWANDA DRESSING FUNCTIONING WELL. CRYO READY TO BE PUT IN PLACE WITH FRESH ICE. PATIENT HAD TEDS ON, AND FOOT PUMPS, AND THEN HEEL PROTECTORS.IS AT BEDSIDE, PATIENT ENCOURAGED TO TAKE DEEP BREATHS AND COUGH. PATIENT REPORTED PAIN 5/10 ON PAIN SCALE, DULL ACHE AND TOLERABLE. REPORTS RESCUE BLOCK RESOLVED SHARP PAIN. DISCUSSED POC WITH NURSE, AND ANSWERED QUESTIONS AND CONCERNS. VERBALIZED TO [facility] WHERE PATIENT WAS PLACED AND REQUESTED SHE FOLLOW/UP TOMORROW WITH PATIENT AND MAKE SURE OT ASSESS PATIENT.
--- NOTE | 2020-06-21 18:47 | NUR ---
TOOK PATIENTS GLUCOSE LEVEL IT WAS 287, IT WAS REPORTED TO THE NURSE.
--- NOTE | 2020-06-21 19:00 | NUR ---
BG CHECK ON PT PRE-PRANDIAL. CBG 287. CALL IN TO DR DORSEY NO SS INSULIN ORDERED. DR DORSEY REQUEST A CONSULT TO DR NGUYỄN FOR DIABETIC MANAGEMENT.
--- NOTE | 2020-06-21 19:10 | NUR ---
REPORT RECEIVED FROM DAY SHIFT RN. PT LYING IN BED ALERT AND ORIENTED. SCD'S/TEDS/CRYO IN PLACE. LAWANDA INTACT, LIGHT FLASHING GREEN. NO C/O PAIN. NO NEEDS AT THIS TIME. WHITE BOARD UPDATED. CALL LIGHT IN REACH.
--- NOTE | 2020-06-21 19:40 | NUR ---
WENT IN TO THE ROOM TO CHECK PATIENT. PATIENT STATED I WILL CALL WHEN I AM READY TO GET UP TO VOID. PRIMARY RN NOTIFIED. CALL LIGHT WITHIN REACH.
--- NOTE | 2020-06-21 20:54 | NUR ---
PRODUCTION BROACHER ROUNDING NOTE. PT UP TO SIDE OF BED TO URINATE IN THE URINAL. PT TOLERATED WELL. BACK TO BED WITH 2 PA. ALL PRECAUTIONS REPLACED. PT DENIES FURTHER NEEDS AT THIS TIME. CALL LIGHT IN REACH. WHITE BOARD UPDATED.
--- NOTE | 2020-06-21 21:30 | NUR ---
EVENING ASSESSMENT COMPLETE. SCHEDULED MEDS ADMINISTERED PER EMAR. PT DENIES PAIN OR NAUSEA. RIGHT LEG CMS INTACT. LAWANDA DRESSING CLEAN DRY INTACT. LIGHT FLASHING GREEN. SCD'S/TEDS/HP IN PLACE. ICE TO CRYO. CPOX IN PLACE. SpO2 93-95% ON RA. HR 70'S. NO QUESTIONS OR CONCERNS AT THIS TIME. CALL LIGHT IN REACH.
--- NOTE | 2020-06-21 23:58 | NUR ---
BLOOD SUGAR CHECKED AND SLIDING SCALE INSULIN ADMINISTERED PER ORDER. NO FURTHER NEEDS AT THIS TIME. CALL LIGHT IN REACH.
--- NOTE | 2020-06-22 02:05 | NUR ---
IV ABX AND SCHEDULED MEDS ADMINISTERED PER EMAR. PT REPORTS HE IS RESTING COMFORTABLY. DENIES PAIN. VS COMPLETE. SpO2 91% ON RA. HR 60'S. SCD'S/TEDS/HP IN PLACE. FRESH ICE TO CRYO. DRESSING INTACT, LIGHT FLASHING GREEN. PT DOES NOT NEED TO VOID AT THIS TIME, STATES "IN A LITTLE BIT". AGREES TO CALL FOR ASSISTANCE.
--- NOTE | 2020-06-22 02:34 | NUR ---
CALL LIGHT ANSWERED. 1 PA PATIENT STOOD UP USING WALKER TO USE THE URINAL. PATIENT IS BACK IN BED. SCD, HEEL PROTECTOR AND CRYO CUFF ARE BACK ON. CALL LIGHT IN REACH. NO OTHER NEEDS AT THIS TIME.
--- NOTE | 2020-06-22 06:28 | NUR ---
SCHEDULED MEDS ADMINISTERED. VS AND I&O COMPLETE. ASSISTED PT TO REPOSITION IN BED. PT ADAMANT THAT HE LAY ON HIS LEFT SIDE WITH PILLOW BETWEEN HIS KNEES. REPORTS HE TALKED TO PHYSICAL THERAPY AT LENGTH ABOUT LYING ON LEFT SIDE AND PHYSICAL THERAPY OK'D IT. SCD'S/CRYO/TEDS/HP IN PLACE. LAWANDA CDI LIGHT FLASHING GREEN. CMS INTACT. DENIES FURTHER NEEDS. CALL LIGHT IN REACH.
--- NOTE | 2020-06-22 07:40 | NUR ---
PATIENT RESTING IN BED. WHITE BOARD UPDATED. PATIENT'S HANDS AND FACE WASHED. ICE GIVEN. CALL LIGHT WITHIN REACH. NO OTHER NEEDS AT THIS TIME
--- NOTE | 2020-06-22 09:41 | NUR ---
Patient reports he is doing well this am, a&ox4. Pt on room air, respirations even and non labored. Pt reports pain is 7/10 and tolerable at this time. Breakfast tolerated well. Pt's figueroa dressing to right hip is CDI; green light flashing at this time. CMS intact to RLE.
--- NOTE | 2020-06-22 09:51 | NUR ---
PT BACK TO BED AFTER WORKING WITH PHYHSICAL THERAPY. PT TOELRATED WELL. PAIN WELL MANAGED AT THIS TIME.
[2020-06-22] MEDS ORDERED: CYCLOBENZAPRINE10 MG PO (09:54)
--- NOTE | 2020-06-22 10:13 | NUR ---
PATIENT RESTING IN BED. VITAL SIGNS AND I&O DONE. CRYO MACHINE FILLED WITH ICE. PATIENT'S LUNCH ORDERED. CALL LIGHT WITHIN REACH. NO OTHER NEEDS AT THIS TIME
--- NOTE | 2020-06-22 10:43 | NUR ---
Spoke with pt for CM assessment. Pt states he will be staying here in town with is exwife. He has a commode and walker in the home. She is not working and will assist him as needed, including driving. He is set for OP therapy to start next week at the [facility]. Plans on dc today. His only concern is getting into a car. Offered wc van, but he would like to try to get into his car. Spoke with Swetha from OT and she can assist him getting in and out of a car. He works for the [employer], plans on returning to work as soon as possible. Needs to have his other hip replaced and plans on returning after the first of the year.
[2020-06-22] MEDS ORDERED: ALPHA LIPOIC AC50 MG PO (11:03)
--- NOTE | 2020-06-22 11:04 | NUR ---
MED REC COMPLETE
--- NOTE | 2020-06-22 12:07 | NUR ---
Oxycodone 10mg po admin for reports of 7/10 right hip pain.
--- NOTE | 2020-06-22 14:20 | NUR ---
PATIENT RESTING IN BED. RN IN ROOM. VITAL SIGNS DONE BY RN. I&O DONE. ICE GIVEN. CALL LIGHT WITHIN REACH. NO OTHER NEEDS AT THIS TIME
--- NOTE | 2020-06-22 15:22 | NUR ---
Patient resting at this time per his request. Respirations are even and non labored. No needs at this time.
--- NOTE | 2020-06-22 16:06 | NUR ---
Called and spoke to Dr. Rahman, update provided regarding pt status. TORB from Dr. Rahman that patient can discharge home at this time. Patient has been cleared from physical therapy.
--- NOTE | 2020-06-22 16:27 | NUR ---
IV TAKEN OUT UPON RN REQUEST. CATH INTACT AND LOOKED GOOD, NURSE NOTIFIED.
--- NOTE | 2020-06-25 07:56 | NUR ---
H&P, progress notes, face sheet,PT/OT eval and notes faxed to OP therapy.
== END 2020-06-22 16:47 | disposition home or self-care (01) ==
LOC: DS 05:50 → MS 17:50 → DS 06-22 16:47
PROVIDERS: ATTEND Specialist
PROC: 8E0Y0CZ Robotic Assisted Procedure of Lower Extremity, Open Approach (ICD-10-PCS; 2020-06-21)
PROC: 3E0T3BZ Introduction of Anesthetic Agent into Peripheral Nerves and Plexi, Percutaneous Approach (ICD-10-PCS; 2020-06-21)
PROC: 0SR904Z Replacement of Right Hip Joint with Ceramic on Polyethylene Synthetic Substitute, Open Approach (ICD-10-PCS; principal; 2020-06-21 06:45)
DX: M16.11 Unilateral primary osteoarthritis, right hip (principal); I10 Essential (primary) hypertension; E11.42 Type 2 diabetes mellitus with diabetic polyneuropathy; E78.5 Hyperlipidemia, unspecified; I25.10 Atherosclerotic heart disease of native coronary artery without angina pectoris; J41.8 Mixed simple and mucopurulent chronic bronchitis; J45.909 Unspecified asthma, uncomplicated; E66.01 Morbid (severe) obesity due to excess calories; K21.9 Gastro-esophageal reflux disease without esophagitis; N40.0 Benign prostatic hyperplasia without lower urinary tract symptoms; M54.16 Radiculopathy, lumbar region; M43.17 Spondylolisthesis, lumbosacral region; M54.17 Radiculopathy, lumbosacral region; G89.18 Other acute postprocedural pain; Z87.891 Personal history of nicotine dependence; Z79.02 Long term (current) use of antithrombotics/antiplatelets; Z79.84 Long term (current) use of oral hypoglycemic drugs; Z79.899 Other long term (current) drug therapy; Z95.5 Presence of coronary angioplasty implant and graft; Z20.828 Contact with and (suspected) exposure to other viral communicable diseases; Z01.812 Encounter for preprocedural laboratory examination; Z68.36 Body mass index [BMI] 36.0-36.9, adult
CPT/HCPCS: 0055T; 27130; 01214; 64447; 72170; 73700; 76942; 97110; 97116; 97162; 97165; C1776; J0690; J0735; J1100; J1815; J1885; J2001; J2250; J2405; J2704; J2765; J3010; J7121; J8540

== ENCOUNTER 2021-12-01 01:19 | Emergency (ER) | payer MEDICARE, OTHER ==
[~2021-12-01] VITALS: Ht 182.9 cm; Wt 132.9 kg
[~2021-12-01 01:19] MED LIST changes: +ALPHA LIPOIC AC50 MG PO; +ASPIRIN325 MG PO; +CELECOXIB200 MG PO; +CYCLOBENZAPRINE10 MG PO; +FLOMAX0.4 MG PO; +GABAPENTIN300 MG PO; +GLYBURIDE5 MG PO; +IRBESARTAN150 MG PO; +MULTIPLE VITAM1 EAC2 PO; +NEURONTIN300 MG PO; +OXYCODONE HCL5 MG PO; +SENNA LAX8.6 MG PO; +STOOL SOFTENER1 EAC4 PO; +TAMSULOSIN HCL0.4 MG PO; +TRULICITY1.5 MG/0.5; +VITAMIN D325 MCG PO; +VITAMIN E1000 UNI4 PO
[2021-12-01] MEDS ORDERED: BACTRIM DS TAB1 EACH PO (01:51)
== END 2021-12-01 02:13 | disposition home or self-care (01) ==
LOC: ED 01:19
DX: L03.116 Cellulitis of left lower limb (principal); I10 Essential (primary) hypertension; E11.9 Type 2 diabetes mellitus without complications; E78.5 Hyperlipidemia, unspecified; Z79.899 Other long term (current) drug therapy; Z79.84 Long term (current) use of oral hypoglycemic drugs
CPT/HCPCS: 99283; A9270

== ENCOUNTER 2022-05-03 07:50 | Day surgery (SDC) | payer MEDICARE, OTHER ==
[~2022-05-03] VITALS: Ht 182.9 cm; Wt 138.6 kg
[~2022-05-03 07:50] MED LIST changes: +BACTRIM DS TAB1 EACH PO; +ZINC50 MG PO
[2022-05-03] MEDS ORDERED: TRULICITY1.5 MG/0.5 SUB-Q (08:16)
--- NOTE | 2022-05-03 09:42 | NUR ---
05/03/22 0942 Mahogany Cerrato 0936-PATIENT ARRIVED TO PACU ON 6L MASK NONAROUSABLE ORAL AIRWAY INPLACE RR EVEN. IVF INFUSING. SR. ABDOMEN ROUND AND SOFT. 0941-GLUCOSE CHECKED 223. PATIENT AROUSING MOVING HEAD OPENED EYES AND MOVED RIGHT ARM TO FACE ORAL AIRWAY REMOVED. 6L MASK RR EVEN.
--- NOTE | 2022-05-04 06:53 | OR ---
[facility] [address] [place], [place] [address] Signed DATE OF OPERATION: 05/03/2022 SURGEON: Odilia Douglass MD PREOPERATIVE DIAGNOSES: 1. Mother with colonic polyps in her 60s. 2. Paternal uncles x2 with colon cancer in their 60s. 3. Father with colon polyps in his 60s. 4. Personal history of colonic polyps numbering 37 in March and April of 2021. 5. Tattoo at 35 cm. 6. Long redundant colon. 7. A single diverticulum right colon. 8. Minimal internal hemorrhoids. 9. Chronic constipation. POSTOPERATIVE DIAGNOSES: 1. Long redundant colon. 2. 4 mm polyps x2 at 18 cm in proximal rectum. 3. 4 mm polyps x2 at 60 cm. PROCEDURE: Colonoscopy with hot biopsy. ESTIMATED BLOOD LOSS: None. INDICATIONS: Jama is a 66-year-old, obese, diabetic gentleman, asked to see me for followup colonoscopy. He came for his initial colonoscopy in March 2021. We had to repeat the procedure in April 2021 because of the sure number of polyps he had in the need for a better bowel prep. He is known to have a long history of chronic constipation. He has the family history as detailed above. We had left a tattoo back at 35 cm. His polyps have ranged in size from 4 mm up to 12 mm. He has had hyperplastic and tubular adenomatous polyps. Because of his medical history and his body habitus, he has required monitored anesthesia care on all three occasions. He insisted on using magnesium citrate with his bowel prep that did help. It also helped, but he did a double bowel prep; however, magnesium citrate been taken off the market. He had to use Dulcolax tablets along with the bowel prep on this occasion. Even this time as he did last time he still had some areas of particulate liquid stool matter, actually clogged the scope four separate times. We know he has a long redundant colon. We had seen a Electronically Signed By: ODILIA DOUGLASS MD 05/04/22 0653 PATIENT NAME: ELLE SCHNEIDER OPERATIVE REPORT DATE OF : 57 REPORT #: [id number] PHYSICIAN: ODILIA DOUGLASS MD PCP: AMBIKA DONNELLY MD REPORT IS CONFIDENTIAL AND NOT TO BE RELEASED WITHOUT AUTHORIZATION [facility] [address] [place], [place] [address] Signed single diverticulum in the right colon. He has minimal internal hemorrhoid tissues. He has no lower GI complaints currently except for his chronic constipation. He has been following along with his label cutter and everything seemed to be fine. He does use Plavix for his cardiac stents. He has also had bilateral hip replacements. In the office I had given him a pamphlet on colonoscopy. We had reviewed the nature of the test. He understands there is risk including, but not limited to gas bloating, crampy abdominal pain, bleeding, perforation requiring surgery, and missed diagnosis. We had reviewed his previous records together. We reviewed the bowel prep in detail. He was to use a double bowel prep with the magnesium citrate. Magnesium citrate been taken off the market. He called the office. We recommended he go ahead and use the Dulcolax tablets. Again, he needs monitored anesthesia care as described above. He had expressed understanding and wished to proceed. DESCRIPTION OF PROCEDURE: Jama was taken into our endoscopy suite and placed in the left lateral decubitus position. He was given preoperative antibiotics due to his bilateral hip replacements. He has been off the Plavix 5 days. A digital rectal exam was performed. He is a large man, I cannot reach his prostate gland. He had good sphincter tone. Nothing much in the way of any external hemorrhoids. No masses noted. The adult colonoscope was then introduced and advanced under direct visualization of camera. Once again, the scope was buckling in the sigmoid and left colon. It took extra propofol and two nurses with the help of our anesthesia provider to apply abdominal compression, and we still could not get the scope to pass into the right colon. He had to be rotated into the supine position. Again, three people had to push on his abdomen. We finally made the turn in down into the cecum itself. Once again, he had a fair amount of particulate stool matter that we simply could not suction through the scope. I was able to see the appendiceal orifice and the ileocecal valve. We had taken pictures throughout for photodocumentation. The scope was then slowly withdrawn. I did not see the single diverticulum in the right colon on this occasion. We did not see the tattoo at 35 cm on this occasion. We did remove four small polyps as mentioned above with the help of hot biopsy forceps. After this, the gas had been suctioned out and the colonoscope removed. Jama tolerated the procedure quite well. RECOMMENDATIONS: Jama will return to my office in 7 to 14 days to review his results. He should probably repeat his colonoscopy in three years due to the sure number of polyps that he has had removed. He will always need a double bowel prep. He will always need monitored anesthesia care. Electronically Signed By: ODILIA DOUGLASS MD 05/04/22 0653 PATIENT NAME: ELLE SCHNEIDER OPERATIVE REPORT DATE OF : 57 REPORT #: [id number] PHYSICIAN: ODILIA DOUGLASS MD PCP: AMBIKA DONNELLY MD REPORT IS CONFIDENTIAL AND NOT TO BE RELEASED WITHOUT AUTHORIZATION [place] [id number] [place], [place] [address] Signed Odilia Douglass MD ALB/MODL /[id number] cc: Odilia Douglass MD Patient Chart Ambika Donnelly MD Copies: ODILIA DOUGLASS MD, ROBERT D DMD ~ Electronically Signed By: ODILIA DOUGLASS MD 05/04/22 0653 PATIENT NAME: ELLE SCHNEIDER OPERATIVE REPORT DATE OF : 57 REPORT #: [id number] PHYSICIAN: ODILIA DOUGLASS MD PCP: AMBIKA DONNELLY MD REPORT IS CONFIDENTIAL AND NOT TO BE RELEASED WITHOUT AUTHORIZATION
--- NOTE | 2022-05-10 10:24 | PATH ---
[facility] [address] [place], [place] [address] Signed SPECIMEN(S): A COLON POLYP AT 18 CM SPECIMEN(S): B COLON POLYP AT 60 CM SPECIMEN SOURCE: A. COLON POLYP AT 18 CM B. COLON POLYP AT 60 CM CLINICAL HISTORY: Preop: History of colon polyps; family history of colon cancer; chronic constipation. Postop: Colon polyps FINAL PATHOLOGIC DIAGNOSIS: A. Colon, 18 cm, polypectomy: - Hyperplastic polyp, one fragment. - An additional fragment of colonic epithelium demonstrates a benign intramucosal lymphoid nodule. - There is no evidence of dysplasia or malignancy. B. Colon, 60 cm, polypectomy: - Benign colonic mucosa with prominent intramucosal lymphoid aggregates. - No evidence of neoplasia. COMMENT: Examination of sections from three different levels of the tissue block discloses the presence of benign intramucosal lymphoid aggregates. Intramucosal lymphoid aggregates can sometimes appear as polyps endoscopically. They have no clinical significance. There is no evidence of dysplasia or malignancy. TWK:buffy:C2NR MICROSCOPIC EXAMINATION: Histologic sections of all submitted blocks are examined by light microscopy. These findings, together with the gross examination, support the pathologic diagnosis. GROSS DESCRIPTION: Two specimens are received in two containers, labeled "CC." A. The specimen, labeled "CC, colon polyp at 18 cm," is received in formalin and consists of two peace soft tissue fragments that measure 0.2 cm in greatest dimension. The specimen is entirely submitted in cassette (A1). B. The specimen, labeled "cc, colon polyp at 60 cm," is received in formalin PATIENT NAME: ELLE SCHNEIDER PATHOLOGY DATE OF : 57 REPORT #: [id number] PHYSICIAN: MAE LEDESMA PCP: AMBIKA DONNELLY MD REPORT IS CONFIDENTIAL AND NOT TO BE RELEASED WITHOUT AUTHORIZATION [facility] [address] [place], [place] [address] Signed and consists of two peace soft tissue fragments that measure 0.1 to 0.2 cm in greatest dimension. The specimen is entirely submitted in cassette (B1). JS (under the direct supervision of a pathologist) The Gross Description was prepared using a voice recognition system. The report was reviewed for accuracy; however, sound-alike word errors, addition and/or deletions may occur. If there is any question about this report, please contact Client Services. PERFORMING LABORATORY: The technical component was performed by [facility], [address] [place] [id number] (CLIA# [id number]). The professional interpretation was performed by [facility], [facility], [address] [place] [place] [place] [address] (CLIA#: [id number]). Diagnostician: Gilson Mckeon MD Pathologist Electronically Signed 05/10/2022 Copies: ~ PATIENT NAME: ELLE SCHNEIDER PATHOLOGY DATE OF : 57 REPORT #: [id number] PHYSICIAN: MAE LEDESMA PCP: AMBIKA DONNELLY MD REPORT IS CONFIDENTIAL AND NOT TO BE RELEASED WITHOUT AUTHORIZATION
== END 2022-05-03 10:18 | disposition home or self-care (01) ==
LOC: DS 07:50
PROVIDERS: ATTEND Colon & Rectal Surgery
PROC: 0DBE8ZX Excision of Large Intestine, Via Natural or Artificial Opening Endoscopic, Diagnostic (ICD-10-PCS; principal; 2022-05-03 09:30)
DX: K62.1 Rectal polyp (principal); K63.5 Polyp of colon; K59.09 Other constipation; Q43.8 Other specified congenital malformations of intestine; K64.8 Other hemorrhoids; G89.29 Other chronic pain; I10 Essential (primary) hypertension; E66.01 Morbid (severe) obesity due to excess calories; E78.00 Pure hypercholesterolemia, unspecified; I25.10 Atherosclerotic heart disease of native coronary artery without angina pectoris; J44.9 Chronic obstructive pulmonary disease, unspecified; E11.21 Type 2 diabetes mellitus with diabetic nephropathy; Z90.49 Acquired absence of other specified parts of digestive tract; Z68.39 Body mass index [BMI] 39.0-39.9, adult; Z79.01 Long term (current) use of anticoagulants; Z95.5 Presence of coronary angioplasty implant and graft; Z96.643 Presence of artificial hip joint, bilateral; Z83.71 Family history of colonic polyps; Z80.0 Family history of malignant neoplasm of digestive organs
CPT/HCPCS: J0690; J2001; J2704; J7121

== ENCOUNTER 2025-01-09 13:00 | Emergency (ER) | payer MEDICARE ==
[~2025-01-09] VITALS: Ht 188 cm; Wt 158.3 kg
[~2025-01-09 13:00] MED LIST changes: +GLIPIZIDE ER5 MG PO; +PIOGLITAZONE HC15 MG PO
[2025-01-09 13:23] LABS: BASOPHILS 1.2 % (0.2-1.2); EOSINOPHILS 5.5 % (0.8-7.0); HEMATOCRIT 44.3 % (40.1-51.0); HEMOGLOBIN 14.3 g/dL (13.7-17.5); LYMPHOCYTES 20.6 % (21.8-53.1); MCH 29.4 PG (25.7-32.2); MCHC 32.3 g/dL (32.3-36.5); MCV 91.2 fL (79.0-92.2); MONOCYTES 9.5 % (5.3-12.2); PLATELET COUNT 144 K/uL (163-337); RBC 4.86 M/uL (4.63-6.08)
[2025-01-09] MEDS ORDERED: TOUJEO SOL300 UNIT/1 SUB-Q (13:23)
[2025-01-09] MEDS ORDERED: STIOLTO RESPIMAT4 GM IH (13:24)
[2025-01-09] MEDS ORDERED: METOPROLOL SUCC25 MG PO (13:24)
[2025-01-09] MEDS ORDERED: NITROGLYCERIN 0.4 MG SUBL SL PRN (13:30)
[2025-01-09] MEDS ORDERED: ASPIRIN 81 MG CHEW PO ONE (13:30)
[2025-01-09 13:35] LABS: ALBUMIN 3.4 g/dL (3.4-5.0); ALBUMIN/GLOBULIN RATIO 1.03 (1.1-2.4); ANION GAP 11.7 (7-21); BILIRUBIN, TOTAL 0.5 mg/dL (0.2-1.0); BUN/CREATININE RATIO 15.07 (6.0-28.6); CALCIUM 8.7 mg/dL (8.5-10.1); CREATININE, SERUM 1.26 mg/dL (0.70-1.30); MAGNESIUM 1.6 mg/dL (1.8-2.4); POTASSIUM 4.7 mmol/L (3.5-5.1); PROTEIN, TOTAL 6.7 g/dL (6.4-8.2)
[2025-01-09] MEDS ORDERED: cloNIDine HCL 0.1 MG TAB PO ONE (16:00)
[2025-01-09 16:15] VITALS: BP 115/91
--- NOTE | 2025-01-10 10:13 | EKG ---
[facility] [address] [facility] [place] [address] Signed Unusual P axis, possible ectopic atrial rhythm Low voltage QRS Abnormal ECG When compared with ECG of 03-DEC-2023 22:25, Ectopic atrial rhythm has replaced Sinus rhythm Nonspecific T wave abnormality now evident in Anterior leads Confirmed by Josi Lerner DO ([id number]) on 01/10/2025 10:13:15 AM Electronically Signed By: JOSI LERNER DO 01/10/25 1013 PATIENT NAME: ELLE SCHNEIDER Electrocardiogram DATE OF : 57 PHYSICIAN: JOSI LERNER DO REPORT #: [id number] REPORT IS CONFIDENTIAL AND NOT TO BE RELEASED WITHOUT AUTHORIZATION
== END 2025-01-09 16:15 | disposition home or self-care (01) ==
LOC: ED 13:00
PROVIDERS: Emergency Medicine
DX: R07.9 Chest pain, unspecified (principal); I10 Essential (primary) hypertension; E11.9 Type 2 diabetes mellitus without complications; E78.5 Hyperlipidemia, unspecified; Z79.84 Long term (current) use of oral hypoglycemic drugs; Z79.899 Other long term (current) drug therapy; Z87.891 Personal history of nicotine dependence
CPT/HCPCS: 36415; 71045; 80053; 83735; 84484; 85025; 93005; 93010; 99285-25; A9270

== ENCOUNTER 2025-06-23 09:23 | Day surgery (SDC) | payer MEDICARE ==
[~2025-06-23] VITALS: Ht 188 cm; Wt 155.0 kg
[~2025-06-23 09:23] MED LIST changes: +IBLOOD GLUCOSE TEST STRIP 1 EA TEST VI PRN; +LACTATED RINGER'S 1,000 ML IV SCH; +LIDOCAINE HCL 1% 5 ML SDV INJ ONE; +METOPROLOL SUCC25 MG PO; +MOUNJARO2.5 MG/0.5 SUB-Q; +STIOLTO RESPIMAT4 GM IH; +TOUJEO SOL300 UNIT/1 SUB-Q
[2025-06-23] MEDS ORDERED: LIDOCAINE HCL 2% 5 ML SDV ONE (09:30)
[2025-06-23 09:37] VITALS: BP 130/73
[2025-06-23] MEDS ORDERED: MORINGA PO (09:42)
--- NOTE | 2025-06-23 11:17 | NUR ---
06/23/25 1117 [place] 1110-PATIENT ARRIVED TO PACU ON 6L MASK RR EVEN NONAROUSABLE LAYING LAYING LEFT LATERAL ABDOMEN ROUND AND SOFT. IVF INFUSING. SR. PER ANESTHESIA DO NOT NEED TO RECHECK GLUCOSE. 1111-PATIENT COUGHING EYES CLOSED HOB ELEVATED. 1115-PATIENT COUGHING PICKING AT OXYGEN MASK, OXYGEN MASK REMOVED. 2L NC RR EVEN 98% SLEEP APNEA HANDOUT TO GO HOME
[2025-06-23 11:44] VITALS: BP 122/65
--- NOTE | 2025-06-29 11:45 | PATH ---
[facility] [address] [place], [place] [address] Signed SPECIMEN(S): A COLON POLYP AT 60 CM SPECIMEN(S): B COLON POLYP AT 30 CM SPECIMEN SOURCE: A. COLON POLYP AT 60 CM B. COLON POLYP AT 30 CM CLINICAL HISTORY: History of polyps FINAL PATHOLOGIC DIAGNOSIS: A. Colon polyp at 60 cm: - Sessile serrated adenoma B. Colon polyp at 30 cm: - Hyperplastic polyp BB MICROSCOPIC EXAMINATION: Histologic sections of all submitted blocks are examined by light microscopy. These findings, together with the gross examination, support the pathologic diagnosis. GROSS DESCRIPTION: A. The specimen, labeled and designated "Chesonis, colon polyp at 60 cm," is received in formalin and consists of two peace soft tissue fragments, ranging from 0.1-0.3 cm. Entirely submitted in (A1). B. The specimen, labeled and designated "Chesonis, colon polyp at 30 cm," is received in formalin and consists of one peace soft tissue fragment, 0.4 cm. Entirely submitted in (B1). VB (under the direct supervision of a pathologist) The Gross Description was prepared using a voice recognition system. The report was reviewed for accuracy; however, sound-alike word errors, addition and/or deletions may occur. If there is any question about this report, please contact Client Services. ADDITIONAL NOTES: Immunohistochemical and/or in situ hybridization studies if performed in this case included appropriate positive controls that reacted as expected. This test was developed and its performance characteristics determined by [facility]. It has not been cleared or approved by the U.S. Food and Drug Administration. The FDA has determined that PATIENT NAME: ELLE SCHNEIDER PATHOLOGY DATE OF : 57 REPORT #: [id number] PHYSICIAN: MAE LEDESMA PCP: AMBIKA DONNELLY MD REPORT IS CONFIDENTIAL AND NOT TO BE RELEASED WITHOUT AUTHORIZATION [facility] [address] [place], [place] [address] Signed such clearance or approval is not necessary. This test is used for clinical purposes. It should not be regarded as investigational or for research. [facility] is certified under the Clinical Laboratory Improvement Amendments of 1988 (CLIA) as qualified to perform high complexity clinical laboratory testing. PERFORMING LABORATORY: Technical component was performed by [facility], [address] [place] [id number] (CLIA# [id number]). Professional interpretation was performed by [facility] [place] [address] (CLIA#: [id number]). Diagnostician: Valeriy Ogden MD Pathologist Electronically Signed 06/29/2025 Copies: ~ PATIENT NAME: ELLE SCHNEIDER PATHOLOGY DATE OF : 57 REPORT #: [id number] PHYSICIAN: MAE PATHOLOGY PCP: AMBIKA DONNELLY MD REPORT IS CONFIDENTIAL AND NOT TO BE RELEASED WITHOUT AUTHORIZATION
== END 2025-06-23 11:53 | disposition home or self-care (01) ==
LOC: DS 09:23 → OPS 09:23 → DS 10:30 → OPS 10:30
PROVIDERS: ATTEND Surgery
PROC: 0DBN8ZX Excision of Sigmoid Colon, Via Natural or Artificial Opening Endoscopic, Diagnostic (ICD-10-PCS; 2025-06-23)
PROC: 0DBM8ZX Excision of Descending Colon, Via Natural or Artificial Opening Endoscopic, Diagnostic (ICD-10-PCS; principal; 2025-06-23 10:10)
DX: D12.4 Benign neoplasm of descending colon (principal); K63.5 Polyp of colon; Z86.0101 Personal history of adenomatous and serrated colon polyps; Z86.0100 Personal history of colon polyps, unspecified; I25.10 Atherosclerotic heart disease of native coronary artery without angina pectoris; E11.9 Type 2 diabetes mellitus without complications; I10 Essential (primary) hypertension; Z88.8 Allergy status to other drugs, medicaments and biological substances; E78.00 Pure hypercholesterolemia, unspecified
CPT/HCPCS: 00811; 88305; J2003; J2704